=== PATIENT | male | born 1945 | race Caucasian/White ===

== ENCOUNTER 2017-01-21 04:32 | Emergency (ER) | payer MEDICARE ==
[~2017-01-21] VITALS: Ht 175.3 cm; Wt 84.5 kg
[~2017-01-21 04:32] MED LIST: ASPI-973 PO; CLOP75TA28 PO; LISI-567 PO; METO25TA6 PO; MULT-666 PO; ROSU5TAB PO
--- NOTE | 2017-01-21 04:37 | ED.REPORT ---
HPI-Chest Pain 40 and Over Date of Service Jan 21, 2017 ED Provider: Dr. Truong. A 71 year old male with a history of PR, cardiac stents, and HTN presents to the ED via EMS complaining of chest pain onset 0 today that radiates to neck , left arm and left shoulder. At onset, the pain was 4/10 but is now rated at 2 /10. The pain is still present in neck, left arm, and left shoulder. At onset, patient felt like they were having indigestion, started to feel worse and took two NTG at home and then called EMS. He was given additional NTG and Baby Aspirin in ambulance. Patient is accompanied by grandson and . Nursing Notes Stated Complaint: CHEST PAIN Nursing Notes Reviewed: Yes Allergies: Coded Allergies: ciprofloxacin (Verified Allergy, Unknown, Nausea,Vomiting,Diarrhea, 01/21/17 ) Scheduled Aspirin (Aspirin) 81 Mg Tablet 81 MG PO DAILY Clopidogrel (Clopidogrel) 75 Mg Tablet 75 MG PO DAILY Lisinopril (Lisinopril) 20 Mg Tablet 20 MG PO BID Metoprolol Tartrate (Metoprolol Tartrate) 25 Mg Tablet 12.5 MG PO DAILY Multivitamin (Once Daily) 1 Each Tablet 1 EACH PO DAILY Rosuvastatin Calcium (Crestor) 5 Mg Tablet 2.5 MG PO MoWeFr take once on Tuesday, Tuesday and Tuesday. General Time Seen by MD: 04:36 Chief Complaint Chest pain Hx Obtained From: Patient, EMS Arrived By: Ambulance Sudden in Onset?: Yes Onset Occurred: 1 - 4 hours ago (299) Symptom Duration: Since onset Radiation: : Arm left: Shoulder left Severity: Current: Pain level 2 out of 10 Severity: Maximum: Pain level 4 out of 10 Recent Healthcare: No recent doctor visit Similar Sx Previous: Yes Past Medical History Past Medical History 7 cardiac stents, most recent was 2 years ago. PR Arthritis chronic mid/lower back pain Reports: Hypertension Past Surgical History left total knee replacement. laminectomy. bilateral rotator cuff repair. Smoking History Former Smoker (quit 31 years ago) Ambulatory Status Independent Review of Systems Constitutional: Denies: Chills, Fever Cardiovascular: Reports: Chest pain Musculoskeletal: Reports: Extremity pain (left arm and left shoulder), Neck pain Complete sys rev & neg: except as marked. Physical Exam Physical Exam Notes: Initial Vital Signs Vital Signs (First) Date Time Temp Pulse Resp B/P Pulse Ox O2 Delivery O2 Flow Rate FiO2 01/21/17 04:38 36.5 70 22 131/89 94 Room Air Initial VS: Reviewed General/Constitutional: Awake, Alert Patient is adequately hydrated. Patient is in minimal distress. Respiratory / Chest: Atraumatic, Breath sounds NL, Breath sounds = bilat, No respiratory distress, No rales, No rhonchi, No wheezing Premature heart leaps. Abdomen: No guarding, No rebound Lower Extremity / Pelvis / MS: No swelling, No edema Skin: Atraumatic, Warm, Dry Neurologic: Oriented X3, Speech NL Head / Eyes: Atraumatic, Normocephalic, PERRL, EOMI ENT: Atraumatic, Mucous membranes moist Upper Extremity / MS: No swelling, No edema Interpretation & Diagnostics Lab Results Interpretation Result Diagram: 01/21/1742901/21/17 0430 Test 01/21/17 04:30 White Blood Count 6.5th/mm3 (3.8-10.1) Red Blood Count 4.95mil/mm3 (4.40-5.80) Hemoglobin 14.5g/dL (13.8-17.2) Hematocrit 42.8% (41.0-50.0) Mean Corpuscular Volume 86.5fL (81-100) Mean Corpuscular Hemoglobin 29.3pg (27.0-35.0) Mean Corpuscular Hemoglobin Concent 33.9% (32.0-37.0) Red Cell Distribution Width 14.8% (12.3-15.4) Platelet Count 226bil/L (150-400) Neutrophils (%) (Auto) 41.2% (40-74) Lymphocytes (%) (Auto) 37.7% (14-46) Monocytes (%) (Auto) 12.0% (4-12) Eosinophils (%) (Auto) 8.4% (0-5) Basophils (%) (Auto) 0.5% (0-3) Sodium Level 143mEq/L (134-144) Potassium Level 4.2mEq/L (3.5-5.2) Chloride Level 104mEq/L (97-108) Carbon Dioxide Level 23mmol/L (18-29) Blood Urea Nitrogen 18mg/dL (8-27) Creatinine 1.18mg/dL (0.76-1.27) Estimat Glomerular Filtration Rate 64mL/min (>59) Glucose Level 92mg/dL (60-99) Calcium Level 10.0mg/dL (8.5-10.1) Magnesium Level 2.2mg/dL (1.6-2.6) Total Bilirubin 0.3mg/dL (0.0-1.2) Aspartate Amino Transf (AST/SGOT) 18U/L (0-50) Alanine Aminotransferase (ALT/SGPT) 14U/L (0-44) Alkaline Phosphatase 43U/L (25-160) Troponin T < 0.010ug/L (0.0-0.011) Total Protein 7.2g/dL (6.4-8.4) Albumin 4.2g/dL (3.4-5.0) ECG Interpretation ECG Interpretation: Rate is 69. Sinus rhythm. Multiform ventricular premature complexes. LAD, consider left anterior fasicular block. Time: 04:35 Interpreted by: ED physician X-Ray Chest Interpretation View: Portable Interpretation / Wet Read by: Wet read ED physician NL X-Ray Chest Findings: No infiltrate, Normal lung markings, Normal heart size, Normal mediastinum, Normal great vessels, No fracture, Soft tissues normal , No acute disease Re-Eval/Medical Decision Med Decision/Clinical Course 71-year-old male who awoke with substernal chest pain at around 0300 hrs. this morning. He has a history of coronary artery disease and multiple stents. He took nitroglycerin which probably helped. He missed his evening meds yesterday and these were given here in the emergency room to include metoprolol, lisinopril, and Plavix. EKG and troponin were both normal. His care is being turned over at change of shift to the oncoming doctor for a repeat EKG and troponin at 0700 hrs. Source of Hx: Old records, EMS Time of Eval: 04:44 Re-Evaluation/Progress Note: Rechecked patient and explained plan to perform tests. Patient understands and agrees with the plan. Time of Eval: 05:43 Re-Evaluation/Progress Note: Rechecked patient who is pain free. EKG and troponin are negative, but we explained plan to do repeat EKG at 0700. Patient understands and agrees with the plan. Counseled Regarding: Diagnosis, Lab results, Need for follow-up, When/why to return to ED Discharge & Departure Shift Change Sign-Out Patient Care Transferred: Yes Discussed Complaint(s): Yes Primary Impression: Chest pain Chest pain type: unspecified Qualified Code: R07.9 - Chest pain, unspecified Referrals: Margie Leon DO (PCP) Care Transferred to: Dr. Beatty Care Transferred at: 06:00 Sarabjitibmarcia Attestation Portions of this note were transcribed by Jordi Fairbanks. I, Dr. Truong personally performed the history, physical exam and medical decision-making; I reviewed and confirmed the accuracy of the information in the transcribed note. Signed by: Tri Nobles, 01/21/2017, 0548. copies to: Margie Leon Howard L MD Jan 21, 2017 04:37 Jordi Fairbanks Jan 21, 2017 04:44
[2017-01-21 04:38] VITALS: BP 131/89; PULSE 70; RESP 22; O2SAT 94
[2017-01-21 04:51] LABS: BASOPHILS % (AUTO) 0.5 % (0-3); EOSINOPHILS % (AUTO) 8.4 % (0-5); Mean Corpuscular Hemoglobin 29.3 pg (27.0-35.0); Mean Corpuscular Volume 86.5 fL (81-100); NEUTROPHILS % (AUTO) 41.2 % (40-74); Platelet Count 226 bil/L (150-400)
[2017-01-21 05:14] LABS: TROPONIN T < 0.010 ug/L (0.0-0.011)
[2017-01-21 05:21] LABS: Magnesium 2.2 mg/dL (1.6-2.6)
--- NOTE | 2017-01-21 07:58 | DRSVH ---
PROCEDURE: X-RAY CHEST ONE VIEW, PORTABLE ([id number]) INDICATIONS: CHEST PAIN TECHNIQUE: One view of the chest was acquired. COMPARISON: 10/22/2015 FINDINGS: Surgical changes and devices: None. Lungs and pleura: No pleural effusions or pneumothorax. Lungs are clear. Mediastinum: Mediastinal contours appear normal. Heart size is normal. Aortic calcifications. Bones and chest wall: No suspicious bony lesions. Overlying soft tissues appear unremarkable. IMPRESSION: No acute cardiopulmonary abnormality Dictated by: Flavio Heath M.D. on 01/21/2017 at 7:56 Approved by: Flavio Heath M.D. on 01/21/2017 at 7:57
[2017-01-21 08:11] VITALS: BP 137/81; PULSE 58; RESP 18; O2SAT 95
== END 2017-01-21 08:13 | disposition home or self-care (01) ==
LOC: SED 04:32
DX: R07.2 Precordial pain (principal); I25.2 Old myocardial infarction; I10 Essential (primary) hypertension; Z95.5 Presence of coronary angioplasty implant and graft; Z87.891 Personal history of nicotine dependence; Z79.82 Long term (current) use of aspirin; Z88.1 Allergy status to other antibiotic agents